=== PATIENT | female | born 1945 | race Caucasian/White ===

== ENCOUNTER 2017-04-11 17:00 | Emergency (ER) | payer OTHER ==
[2017-04-11] MEDS ORDERED: DIPHTH,PERTUSS(ACELL),TET 0.5 ML DISP.SYRIN IM ONE (17:21)
--- NOTE | 2017-04-11 17:23 | PDOC ---
History of Present Illness <Jeannette Kuo - Last Filed: 04/11/17 18:31> - History of Present Illness Initial Comments: 04/11/17 17:21 72 F with h/o CAD/stents, HTN, HLD, DM, arthritis, presenting to ER with abrasion to face and R knee after falling. Pt states that she was outside smoking when she missed a step and fell, landing face first onto the ground. Denies LOC. States that she also landed on her knees. Was able to get up immediately afterwards and ambulate. Pt denies UNGER/N/V. Denies neck pain. Pt denies ever having CP/SOB/palpitations/lightheadedness. Now only complains of pain in her face and R knee. <Manuel Luevano - Last Filed: 04/12/17 10:13> - General Chief Complaint: Injury Stated Complaint: FACIAL LACERATION AND ABRASIONS S/P FALL Time Seen by Provider: 04/11/17 17:03 Past History <Jeannette Kuo - Last Filed: 04/11/17 18:31> <Manuel Luevano - Last Filed: 04/12/17 10:13> - Past Medical History Allergies/Adverse Reactions: Allergies Allergy/AdvReac Type Severity Reaction Status Date / Time No Known Allergies Allergy Unverified 04/11/17 17:03 Home Medications: Ambulatory Orders Alprazolam [Xanax] 2 mg PO TID 04/11/17 Aspirin [Adult Aspirin Regimen] 81 mg PO HS 04/11/17 Empagliflozin [Jardiance] 1 tab PO DAILY 04/11/17 Glipizide/Metformin HCl [Glipizide-Metformin 5-500 mg] 1 tab PO AM 04/11/17 Hydrocodone/Acetaminophen [Hydrocodone-Acetamin 10-325 mg] 1 tab PO PRN Lisinopril 20 mg PO DAILY 04/11/17 Lovastatin 40 mg PO HS 04/11/17 Metformin HCl [Metformin HCl ER] 500 mg PO HS 04/11/17 Tizanidine HCl [Zanaflex] 4 mg PO DAILY 04/11/17 Vitamin B12 DAILY 04/11/17 Review of Systems - Review of Systems Comments:: 04/11/17 17:23 "GENERAL/CONSTITUTIONAL: No fever or chills. No weakness. HEAD, EYES, EARS, NOSE AND THROAT: No change in vision. No ear pain or discharge. No sore throat. CARDIOVASCULAR: No chest pain or shortness of breath. RESPIRATORY: No cough, wheezing, or hemoptysis. GASTROINTESTINAL: No nausea, vomiting, diarrhea or constipation. GENITOURINARY: No dysuria, frequency, or change in urination. MUSCULOSKELETAL: + R knee pain SKIN: No rash NEUROLOGIC: No headache, vertigo, loss of consciousness, or change in strength/ sensation. ENDOCRINE: No increased thirst. No abnormal weight change. HEMATOLOGIC/LYMPHATIC: No anemia, easy bleeding, or history of blood clots. ALLERGIC/IMMUNOLOGIC: No hives or skin allergy. " <Elizabeth Luevanoan - Last Filed: 04/12/17 10:13> *Physical Exam - Vital Signs Last Vital Signs Temp Pulse Resp BP Pulse Ox 99.2 F 87 20 160/83 92 L 04/11/17 17:02 04/11/17 17:02 04/11/17 17:02 04/11/17 17:02 04/11/17 17:02 <Jeannette Kuo - Last Filed: 04/11/17 18:31> - Physical Exam Comments: 04/11/17 17:20 "GENERAL: Awake, alert, and fully oriented, in no acute distress HEAD: + Superficial laceration to L eyebrow, abrasion to nose EYES: PERRLA, EOMI, sclera anicteric, conjunctiva clear ENT: Auricles normal inspection, hearing grossly normal, nares patent, oropharynx clear without exudates. Moist mucosa NECK: Nontender, no stepoffs, Normal ROM, supple, no lymphadenopathy, JVD, or masses LUNGS: Breath sounds equal, clear to auscultation bilaterally. No wheezes, and no crackles HEART: Regular rate and rhythm, normal S1 and S2, no murmurs, rubs or gallops ABDOMEN: Soft, nontender, normoactive bowel sounds. No guarding, no rebound. No masses EXTREMITIES: + abrasion to R knee, no bony tenderness over patella, Normal range of motion, no edema. No clubbing or cyanosis. No cords, erythema, or tenderness NEUROLOGICAL: Cranial nerves II through XII intact. 5/5 strength and sensation in all extremities, Normal speech, normal gait SKIN: Warm, Dry, normal turgor, no rashes or lesions noted. <Manuel Luevano - Last Filed: 04/12/17 10:13> ED Treatment Course - RADIOLOGY Radiograph Interpretation: 04/11/17 18:31 Right knee x-ray Impression: Linear lucency through the patella on the sunrise view - please correlate with point tenderness for nondisplaced acute patellar fracture. If warranted, MRI or CT may be obtained for further evaluation. Reported by: Amilcar Islas DO 04/11/17 9224 - Medications Given in the ED: ED Medications Discontinued Medications Generic Name Dose Route Start Last Admin Trade Name Freq PRN Reason Stop Dose Admin Diphtheria/Tetanus/Acell Pertussis 0.5 ml 04/11/17 17:21 04/11/17 17:32 Boostrix - IM 04/11/17 17:22 0.5 ml .ONCE ONE Administration Oxycodone/Acetaminophen 1 combo 04/11/17 17:03 04/11/17 17:32 Percocet 5/325 - PO 04/11/17 17:04 1 combo ONCE ONE Administration <Jeannette Kuo - Last Filed: 04/11/17 18:31> - RADIOLOGY Radiology Studies Ordered: Category Date Time Status FACIAL BONES CT W/O CONTRAST [CT] Stat CT Scan 04/11/17 17:[address] WITHOUT CONTRAST [CT] Stat CT Scan 04/11/17 17:09 Ordered KNEE 3 POS-RIGHT [RAD] Stat Radiology 04/11/17 17:10 Ordered <Manuel Luevano - Last Filed: 04/12/17 10:13> Medical Decision Making - Medical Decision Making 04/11/17 17:20 72 F with abrasion to face and R knee s/p mechanical fall. - CTH, facial bones - XR R knee 04/11/17 17:49 XR of knee shows linear lucency in patella, ?acute fracture. Pt re-examined, does not have any bony tenderness over the patella. Pt ambulatory in ER without problem. I offered knee immobilizer, but pt refused, stating her leg feels fine. Pt refusing CT, stating that she does not wish to wait and needs to get back to the . Pt is awake, alert, AnOx3. Denies UNGER/N/V. The patient is clinically sober, free from distracting injury, appears to have intact insight and judgment and reason and in my opinion has the capacity to make decisions. She understands that without a head CT, we cannot rule out an intracranial hemorrhage, a potentially life threatening condition. <Manuel Luevano - Last Filed: 04/12/17 10:13> *DC/Admit/Observation/Transfer <Jeannette Kuo - Last Filed: 04/11/17 18:31> - Attestations Physician Attestion: 04/11/17 17:52 I, Dr. Manuel Luevano MD, attest that this document has been prepared under my direction and personally reviewed by me in its entirety. I further attest, that it accurately reflects all work, treatment, procedures and medical decision -making performed by me. <Manuel Luevano - Last Filed: 04/12/17 10:13> Diagnosis at time of Disposition: Fall - Discharge Dispostion Disposition: HOME Condition at time of disposition: Stable - Patient Instructions Printed Discharge Instructions: How to Prevent Falls Additional Instructions: Apply antibiotic ointment to your wounds daily to prevent infection. Please understand that without a CT scan of your head, we cannot definitively rule out a brain bleed, a potentially life-threatening condition. If you experience severe headache, nausea, vomiting, confusion, or any other concerning symptoms, return to the ER immediately. Otherwise, please follow up with your primary doctor TOMORROW for a check up.
[2017-04-11 17:29] VITALS: BP 160/83; PULSE 87; TEMP 99.2; BMI 33.9
== END 2017-04-11 18:30 | disposition home or self-care (01) ==
LOC: FER 17:00
PROC: 3E0234Z Introduction of Serum, Toxoid and Vaccine into Muscle, Percutaneous Approach (ICD-10-PCS; principal; 2017-04-11)
DX: S00.81XA Abrasion of other part of head, initial encounter (principal); W10.9XXA Fall (on) (from) unspecified stairs and steps, initial encounter; Y93.89 Activity, other specified; Y92.9 Unspecified place or not applicable
CPT/HCPCS: 73562-TC-RT; 90471; 90715; 99281-25